=== PATIENT | female | born 1990 | race Caucasian/White ===

== ENCOUNTER → 2016-10-02 | Outpatient (CLI) | payer BC ==
[~2016-10-02] MED LIST: FAMO20TA11 PO; GADAVIST IV PRN; MTR600X PO; PRENTAB26 PO
--- NOTE | 2016-10-02 11:03 | DIAGNOSTIC IMAGING REPORT ---
BRAIN COMBO FOR IAC HISTORY: 26 years-old Female R11.0 [id number] Motion [id number] Migraine patient has COMPARISON: None available TECHNIQUE: Multiplanar multisequence MRI of the brain was obtained both with and without the use of 9 mL Gadavist. FINDINGS: No evidence of restricted diffusion to suggest acute ischemia. The midline structures including the corpus callosum, brainstem, optic chiasm, pituitary and pineal glands are unremarkable on the sagittal T1 sequence. No cerebellar tonsillar herniation. There is no acute intracranial hemorrhage, midline shift, hydrocephalus, abnormal extra-axial collections or intracranial mass. Flow voids at the level of skull base appear normal. Orbits are symmetric. Polypoid mucosal thickening involves the right maxillary sinus. There is mild ethmoid sinus disease. No abnormal T2/flair signal within the brain parenchyma. Cerebellopontine angles appear normal without associated mass. The course of the 7th and 8th cranial nerves appear normal without abnormal enhancement or mass. The internal auditory canals appear to be within normal limits. IMPRESSION: 1. No acute intracranial abnormality. Normal appearance of the 7th and 8th cranial nerves without abnormal enhancement. 2. Polypoid mucosal thickening of the right maxillary sinus. The above report was generated using voice recognition software. It may contain grammatical, syntax or spelling errors. Electronically signed by: Deo Osorio M.D. 10/02/2016 11:01 AM Dictated Date/Time: 10/02/2016 10:55 AM
== END | disposition home or self-care (01) ==
LOC: C.MRIBC 09:10
PROVIDERS: ATTEND Physician Assistant
DX: G43.909 Migraine, unspecified, not intractable, without status migrainosus (principal); R11.0 Nausea; T75.3XXA Motion sickness, initial encounter; X58.XXXA Exposure to other specified factors, initial encounter

== ENCOUNTER 2020-08-01 01:17 | Inpatient (IN) ==
[2020-08-01] MEDS ORDERED: OXYTOCIN 30 UNITS/500 ML BAG IV PRN ×2 (02:14→09:40)
[2020-08-01] MEDS: LACTATED RINGER'S 1,000 ML IV PRN ×2 (02:15→03:58)
--- NOTE | 2020-08-01 02:27 | History & Physical Report ---
Date of Service August 01, 2020 Assessment & Plan (1) Uterine contractions at greater than 20 weeks of gestation: (2) Active labor at term: 30 yo at 40.5 wks in active labor VSS Afebrile FHR reassuring GBS negative Admit, monitor, labs, IVF, Epidural for pain History of Present Illness Primary Care Provider: NO PCP 30 yo at 40.5 wks who woke up with ctxs at 00:20 am, got painful and closer in 30 minutes She desires epidural for pain No LOF/VB +FM No COLE/ Change in vision/ N&V/ CP/ SOB/ Fever/ chills nor COVID symptoms Her has been complicated by 1) Class II Obesity 2) h/o preeclampsia, on Aspirin 3) Daughter with Solo syndrome GBS negative Allergies Allergy/AdvReac Type Severity Reaction Status Date / Time No Known Allergies Allergy Unverified 05/23/20 09:34 Home Medications Medication Instructions Recorded Confirmed Type Famotidine (Pepcid) 20 mg PO DAILY #0 tab 08/30/14 History Multivit/Min/Iron/Fol Ac/Pren 1 tab PO DAILY #0 tab 08/30/14 History ( Vitamin) Ibuprofen 600 mg PO Q4H PRN #30 tab 09/02/14 Rx Patient History Social History Smoking Status: Never smoker Hx Alcohol Use: No Hx Substance Use: No Preferred Language: [place]une[place] Beliefs That Will Affect Care: None marital status: Current Living Situation: Family Other Information That Helps Us Care for You: No OB History FT in 2014 [employer] History No h/o STD's, no h/o HSV/ Chlam/ GC Review of Systems All systems reviewed & are unremarkable except as noted in HPI & below Physical Exam Constitutional: WD/WN, vitals as above well developed, well nourished and + acute distress (with contractions) Gastrointestinal (Abdomen): normal bowel sounds, soft, nontender, no hepatosplenomegaly (gravid) Genitourinary: OB Exam Abdomen: + vertex (confirmed with bed side US) Manual OB Exam: + cervical dilation 5 cm, + cervical effacement 70% and + station high OB Exam Monitor Tracing: + external uterine monitor used and + category I Results & Data ([facility]) Vital Signs (Past 12 Hours) Vital Signs Pulse Resp BP 08/01/20 01:35 20 08/01/20 01:34 94 H 134/84
[2020-08-01 02:39] LABS: Hematocrit (blood only) 38.3 % (37-47); Hemoglobin 12.8 g/dL (12.0-16.0); Mean Corpuscular Hemoglobin 30.8 pg (25-34); Mean Corpuscular Hgb Conc 33.4 g/dL (32-36); Mean Corpuscular Volume 92.1 fL (80-100); Mean Platelet Volume 10.3 fL (7.4-10.4); Platelet Count 215 K/uL (130-400); RDW Coefficient of Variation 14.1 % (11.5-14.5); RDW Standard Deviation 47.7 fL (36.4-46.3); Red Blood Count 4.16 M/uL (4.2-5.4); White Blood Count 11.15 K/uL (4.8-10.8)
[2020-08-01] MEDS ORDERED: SODIUM CHLORIDE 0.9% INJ 10 ML VIAL ONE (02:42)
[2020-08-01] MEDS ORDERED: ePHEDrine sulfate 50 MG/ML AMP ONE (02:42)
[2020-08-01] MEDS ORDERED: BUPIVACAINE 0.25% 30 ML VIAL ONE (02:42)
[2020-08-01] MEDS ORDERED: fentaNYL 2MCG/ML ROPIVACAINE 1.25MG/ML 100 ML BAG EPI ONE (02:42)
[2020-08-01] MEDS ORDERED: fentaNYL citrate 100 MCG/2 ML VIAL ONE (02:42)
--- NOTE | 2020-08-01 03:25 | Anesthesiology Consultation ---
Date of Service August 01, 2020 Assessment & Plan Chart Review Chart Review: Acceptable Risk for Labor Epidural Consults Requested none History Height/Weight Height: 5 ft 5 in Weight: 113.398 kg Allergies Allergy/AdvReac Type Severity Reaction Status Date / Time No Known Allergies Allergy Unverified 05/23/20 09:34 Medications Home Medications Medication Instructions Recorded Confirmed Last Taken Famotidine (Pepcid) 20 mg PO DAILY #0 tab 08/30/14 Unknown Multivit/Min/Iron/Fol Ac/Pren 1 tab PO DAILY #0 tab 08/30/14 Unknown ( Vitamin) Ibuprofen 600 mg PO Q4H PRN #30 tab 09/02/14 Unknown Social History Smoking Status: Never smoker Hx Alcohol Use: No Hx Substance Use: No Physical Exam Vital Signs Last Vital Signs Temp 37.2 C 08/01/20 02:41 Pulse 105 H 08/01/20 03:23 Resp 20 08/01/20 01:35 BP 132/76 08/01/20 03:23 Pulse Ox 97 08/01/20 03:21 Testing Laboratory Results 08/01/20 02:33
[2020-08-01] MEDS ORDERED: NALOXONE HCL 0.4 MG/1 ML VIAL/CARP IV PRN (03:27)
[2020-08-01] MEDS ORDERED: diphenhydrAMINE 50 MG/ML VIAL IV PRN (03:27)
[2020-08-01] MEDS ORDERED: fentaNYL 2MCG/ML ROPIVACAINE 1.25MG/ML 100 ML BAG EPI PRN (03:27)
[2020-08-01] MEDS ORDERED: ePHEDrine sulfate 50 MG/ML AMP IV PRN (03:27)
[2020-08-01] MEDS ORDERED: NALOXONE HCL 1 MG in SODIUM CHLORIDE 0.9% 1000ML 1,000 ML IV PRN (03:27)
[2020-08-01] MEDS ORDERED: ACETAMINOPHEN 325 MG TAB PO PRN (09:40)
[2020-08-01] MEDS ORDERED: BENZOCAINE 20% AER SPR 82.5 GM CAN EXT PRN (09:40)
[2020-08-01] MEDS ORDERED: bisacodyL 10 MG SUPP PR PRN (09:40)
[2020-08-01] MEDS ORDERED: DIPHTHERIA/TETANUS/PERTUSSIS 0.5 ML SYR/VIAL IM ONE (09:40)
[2020-08-01] MEDS ORDERED: HYDROCORTISONE ACETATE 25 MG SUPP PR PRN (09:40)
[2020-08-01] MEDS ORDERED: SUPERCREAM 0.870% 15 GM JAR EXT PRN (09:40)
[2020-08-01] MEDS ORDERED: IBUPROFEN 600 MG PO PRN (09:40)
--- NOTE | 2020-08-01 09:44 | Delivery Summary ---
Vaginal Delivery Summary Date of Service August 01, 2020 Vaginal Delivery Summary Delivery Note live male MATTY over intact perineum with delayed cord clamping and Apgars 8/9 weight pending. Cord blood obtained followed by spontaneous delivery of intact placenta. No tears. EBL 150 ml. Final sponge and instrument count are correct. Mom and baby stable.
--- NOTE | 2020-08-01 10:28 | Anesthesia Procedure Note ---
Date of Service August 01, 2020 Anesthesia Post Epidural Note Vital Signs Vital Signs: Temp Pulse Resp BP Pulse Ox 98.6 F 101 H 18 133/85 96 08/01/20 06:25 08/01/20 10:24 08/01/20 09:55 08/01/20 10:24 08/01/20 09:31 Pain Intensity Left Abdomen: Pain Intensity: 1 Notes Mental Status: alert / awake / arousable and participated in evaluation Nausea / Vomiting: adequately controlled Pain: adequately controlled Airway Patency, RR, SpO2: stable & adequate BP & HR: stable & adequate Hydration State: stable & adequate Neuraxial Anesthesia: was administered and sensory block is resolving Anesthetic Complications: no major complications apparent and Pt Satisfied with anesthetic care Epidural: Removed without complications and With tip intact
[2020-08-01 14:32] VITALS: O2SAT 98
[2020-08-01] MEDS: IBUPROFEN 600 MG TAB PO PRN ×2 (14:36→20:14)
[2020-08-01] MEDS: DOCUSATE SODIUM 100 MG CAP PO SCH (20:14)
[2020-08-02] MEDS: IBUPROFEN 600 MG TAB PO PRN ×3 (00:05→08:43)
[2020-08-02 06:20] LABS: Hematocrit (blood only) 35.6 % (37-47); Hemoglobin 11.8 g/dL (12.0-16.0); Mean Corpuscular Hemoglobin 30.3 pg (25-34); Mean Corpuscular Hgb Conc 33.1 g/dL (32-36); Mean Corpuscular Volume 91.5 fL (80-100); Mean Platelet Volume 10.6 fL (7.4-10.4); Platelet Count 168 K/uL (130-400); RDW Coefficient of Variation 14.4 % (11.5-14.5); RDW Standard Deviation 48.2 fL (36.4-46.3); Red Blood Count 3.89 M/uL (4.2-5.4); White Blood Count 11.14 K/uL (4.8-10.8)
--- NOTE | 2020-08-02 07:56 | Obstetrical Progress Note ---
Date of Service August 02, 2020 Assessment & Plan Admission and Anticipated Discharge Date Admission Date: August 01, 2020 Subjective Patient is seen and examined. She feels well, no complaints. Desires d/c today Ambulating without dizziness Voiding without difficulty Tolerating regular diet with out N&V Bleeding is minimal No fever/ chills/ CP/ SOB/ N&V/ Leg pain Breast feeding without problems Vital Signs Temp Pulse Pulse Resp BP BP Pulse Ox 08/02/20 04:40 36.7 C 83 16 127/83 98 08/01/20 23:15 36.9 C 84 16 135/85 98 08/01/20 20:05 37.2 C 99 H 99 H 18 154/89 H 154/89 H Lab Results 08/01/20 08/01/20 08/01/20 Range/Units 02:33 19:05 19:05 WBC 11.15 H (4.8-10.8) K/uL RBC 4.16 L (4.2-5.4) M/uL Hgb 12.8 (12.0-16.0) g/dL Hct 38.3 (37-47) % MCV 92.1 (80-100) fL MCH 30.8 (25-34) pg MCHC 33.4 (32-36) g/dL RDW Std Deviation 47.7 H (36.4-46.3) fL RDW Coeff of Kiet 14.1 (11.5-14.5) % Plt Count 215 (130-400) K/uL MPV 10.3 (7.4-10.4) fL COVID-19 Eval Order Covid19 [facility]Now [facility] SARS-CoV-2, RNA, NAAT NEGATIVE (NEGATIVE) 08/02/20 Range/Units 05:48 WBC 11.14 H (4.8-10.8) K/uL RBC 3.89 L (4.2-5.4) M/uL Hgb 11.8 L (12.0-16.0) g/dL Hct 35.6 L (37-47) % MCV 91.5 (80-100) fL MCH 30.3 (25-34) pg MCHC 33.1 (32-36) g/dL RDW Std Deviation 48.2 H (36.4-46.3) fL RDW Coeff of Kiet 14.4 (11.5-14.5) % Plt Count 168 (130-400) K/uL MPV 10.6 H (7.4-10.4) fL COVID-19 Eval Order SARS-CoV-2, RNA, NAAT (NEGATIVE) PE: General: Alert, orientedx3, NAD Abd: soft, NT, fundus firm, below Umbilicus Perineum intact, Lochia rubra minimal Ext; NT, no edema AP: 30 yo s/p , ppd# 1 VSS Afebrile doing well Continue routine care All questions were answered D/C home , f/u in office Discussed when to call Results & Data ([facility]) Vital Signs (Past 12 Hours) Vital Signs Temp Pulse Pulse Resp BP BP Pulse Ox 08/02/20 04:40 36.7 C 83 16 127/83 98 08/01/20 23:15 36.9 C 84 16 135/85 98 08/01/20 20:05 37.2 C 99 H 99 H 18 154/89 H 154/89 H
[2020-08-02] MEDS ORDERED: PRENATAL VITAMIN 1 TAB PO SCH (08:00)
[2020-08-02 08:04] VITALS: BP 139/88; PULSE 71; TEMP 97.9
[2020-08-02] MEDS: DOCUSATE SODIUM 100 MG CAP PO SCH (08:43)
[2020-08-02] MEDS ORDERED: NON-FORMULARY MEDICATION (Multivit/Min/Iron/Fol Ac/Pren (Prenatal Vitamin) tablet) PO SCH (09:00)
[2020-08-02] MEDS ORDERED: FAMOTIDINE 20 MG TAB PO SCH (09:00)
[2020-08-02] MEDS ORDERED: bisacodyL 5 MG TABEC PO SCH (20:00)
== END 2020-08-02 12:50 | disposition home or self-care (01) | DRG 807 ==
LOC: OPB 01:17 → EDSTATUS 01:18 → 4S1 01:19 → 4S2 12:57